=== PATIENT | male | born 2000 | race Caucasian/White ===

== ENCOUNTER 2019-07-31 21:18 | Emergency (ER) | payer OTHER ==
[~2019-07-31] VITALS: Ht 170.2 cm; Wt 68.0 kg
[~2019-07-31 21:18] MED LIST: ALBU90OI INH; AMOCLA250S PO
[2019-07-31] MEDS ORDERED: IBUP600 PO (23:05)
== END 2019-07-31 23:35 | disposition home or self-care (01) ==
LOC: ER 21:18
DX: S62.112A Displaced fracture of triquetrum [cuneiform] bone, left wrist, initial encounter for closed fracture (principal); V00.111A Fall from in-line roller-skates, initial encounter
CPT/HCPCS: 29125; 73110; 99283-25; A9270